=== PATIENT | female | born 1960 | race African-American/Black ===

== ENCOUNTER 2017-10-08 19:56 | Inpatient (IN) | payer MEDICARE ==
[~2017-10-08] VITALS: Ht 167.6 cm; Wt 86.2 kg
[~2017-10-08 19:56] MED LIST: ASPIRIN81 MG ORAL; BENICAR40 MG ORAL; BYSTOLIC10 MG ORAL; CRESTOR10 M1 ORAL; CYCLOBENZAPRINE10 MG ORAL; FLONASE1 SPRAYS NASAL; GABAPENTIN300 MG ORAL; HYDROCHLOROTHIA25 MG ORAL; IBUPROFEN600 MG ORAL; LEXAPRO20 MG ORAL; MAG-OX 400400 MG ORAL; NASONEX17 GM NASAL; NEVANAC *; NEXIUM40 MG ORAL; POTASSIUM99 M3 PO; PROMETHAZINE-D118 ML ORAL; REBIF44 MCG/0.5 SUBQ; RESTASIS1 EACH BOTH EYES; SINGULAIR10 MG ORAL; TAMIFLU75 MG ORAL; VITAMIN D1000 UNI1 ORAL; ZOFRAN ODT4 MG ORAL
[2017-10-08] MEDS ORDERED: Sodium Chloride 500ML 500 ML IV ONE (20:05)
[2017-10-08 21:04] LABS: HEMOGLOBIN 13.4 G/DL (12.0-16.0); MEAN CORPUSCULAR VOLUME 92 FL (80-99); PLATELET COUNT 185 K/UL (150-450); RED BLOOD COUNT 4.44 M/UL (4.20-5.40); RED CELL DISTRIBUTION WIDTH 11.4 % (11.6-14.8); WHITE BLOOD COUNT 13.3 K/UL (4.8-10.8)
[2017-10-08 21:04] LABS: APPEARANCE,URINE CLEAR; BILIRUBIN, URINE 1+ (NEGATIVE); GLUCOSE, URINE (UA) NEGATIVE (NEGATIVE); KETONES,URINE 1+ (NEGATIVE); LEUKOCYTE ESTERASE ,URINE 2+ (NEGATIVE); NITRITE,URINE NEGATIVE (NEGATIVE); PH,URINE 7 (4.5-8.0); PROTEIN,URINE 2+ (NEGATIVE); UROBILINOGEN,URINE 1 MG/DL (0.0-1.0)
[2017-10-08 21:11] LABS: COLOR,URINE YELLOW
[2017-10-08 21:19] LABS: ANION GAP 10 mmol/L (5-15); BLOOD UREA NITROGEN 20 mg/dL (7-18); CALCIUM 9.8 MG/DL (8.5-10.1); CARBON DIOXIDE 30 MMOL/L (21-32); CHLORIDE 102 MMOL/L (98-107); CREATININE 1.2 MG/DL (0.55-1.30); POTASSIUM 4.5 MMOL/L (3.5-5.1); SODIUM 142 MMOL/L (136-145)
[2017-10-08] MEDS ORDERED: cefTRIAXone 1 GM in NS 55 ML IVPB ONE (21:30)
[2017-10-08 21:32] LABS: ALANINE AMINOTRANSFERASE 44 U/L (12-78); ALBUMIN 4.1 G/DL (3.4-5.0); ALBUMIN/GLOBULIN RATIO 0.8 (1.0-2.7); ALKALINE PHOSPHATASE 89 U/L (46-116); ASPARTATE AMINO TRANSFERASE 55 U/L (15-37); BILIRUBIN,TOTAL 0.7 MG/DL (0.2-1.0); CKMB < 0.5 NG/ML (0.0-3.6); CREATINE KINASE 103 U/L (26-308)
[2017-10-08 23:14] VITALS: BP 135/89
[2017-10-08] MEDS ORDERED: NEURONTIN600 MG ORAL (23:42)
[2017-10-09] VITALS: BP 148/73
[2017-10-09] MEDS ORDERED: Morphine Sulfate 4mg/ml Inj IV PRN (00:30)
[2017-10-09] MEDS: D5 1/2NS w/KCl 20mEq 1,000 ML IV SCH ×3 (02:00→21:34)
[2017-10-09 03:48] VITALS: BP 140/70
[2017-10-09 07:52] LABS: BASOPHILS % (AUTO) 0.5 % (0.0-2.0); EOSINOPHILS % (AUTO) 0.6 % (0.0-3.0); HEMATOCRIT 36.7 % (37.0-47.0); HEMOGLOBIN 11.8 G/DL (12.0-16.0); LYMPHOCYTES % (AUTO) 18.8 % (20.0-45.0); MEAN CORPUSCULAR VOLUME 93 FL (80-99); MONOCYTES % (AUTO) 5.1 % (1.0-10.0); PLATELET COUNT 176 K/UL (150-450); RED BLOOD COUNT 3.95 M/UL (4.20-5.40); RED CELL DISTRIBUTION WIDTH 11.1 % (11.6-14.8)
[2017-10-09 08:12] VITALS: BP 139/75
[2017-10-09 08:20] LABS: ANION GAP 10 mmol/L (5-15); BLOOD UREA NITROGEN 17 mg/dL (7-18); CARBON DIOXIDE 29 MMOL/L (21-32); CHLORIDE 102 MMOL/L (98-107); CREATININE 1.2 MG/DL (0.55-1.30); PHOSPHORUS 3.6 MG/DL (2.5-4.9); POTASSIUM 3.2 MMOL/L (3.5-5.1); SODIUM 141 MMOL/L (136-145)
--- NOTE | 2017-10-09 08:22 | Emergency Room Report ---
History of Present Illness General Chief Complaint: Nausea, Vomiting, and Diarrhea Source: Patient, Medical Record Present Illness HPI Patient present with complaints of vomiting and diarrhea Abdominal cramping Patient had recently been on antibiotics However also associates of symptoms starting soon after eating fast food Denies any blood in the stool denies any blood in the vomit Denies any neck pain or photophobia Denies any chest pain or shortness of breath Abdominal cramping is 3 out of 10 Allergies: Coded Allergies: SULFA (SULFONAMIDE ANTIBIOTICS) (Verified Allergy, Intermediate, 05/28/13) N/V , bleeding, dizziness Patient History Past Medical History: see triage record Pertinent Family History: none Last Menstrual Period: None Now: No Reviewed Nursing Documentation: PMH: Agreed; PSxH: Agreed Nursing Documentation-PMH Hx Cardiac Problems: Yes Hx Hypertension: Yes Hx Pacemaker: No Hx Asthma: No Hx COPD: No Hx Diabetes: No Hx Cancer: No Hx Gastrointestinal Problems: No Hx Neurological Problems: Yes Hx Cerebrovascular Accident: No Hx Seizures: No Hx Multiple Sclerosis: Yes Review of Systems All Other Systems: negative except mentioned in HPI Physical Exam Vital Signs Date Time Temp Pulse Resp B/P (MAP) Pulse Ox O2 Delivery O2 Flow Rate FiO2 10/08/17 19:59 98.2 77 18 113/70 98 Room Air 98.2 Sp02 EP Interpretation: reviewed, normal General Appearance: well appearing, no apparent distress Head: normocephalic, atraumatic Eyes: bilateral eye PERRL, bilateral eye EOMI ENT: hearing grossly normal, normal pharynx, TMs + canals normal, uvula midline Neck: full range of motion, supple, no meningismus, no bony tend Respiratory: lungs clear, normal breath sounds, no rhonchi, no respiratory distress, no retraction, no accessory muscle use Cardiovascular #1: normal peripheral pulses, regular rate, rhythm, no edema, no gallop, no JVD, no murmur Gastrointestinal: normal bowel sounds, soft, no mass, no organomegaly, non- distended, no guarding, no hernia, no pulsatile mass, no rebound, tenderness - Diffusely Genitourinary: no CVA tenderness Musculoskeletal: normal inspection Neurologic: oriented x3, responsive, metal cleaner III-XII nml as tested, motor strength/ tone normal, sensory intact Psychiatric: mood/affect normal Skin: normal color, no rash, warm/dry, palpation normal Lymphatic: normal inspection, no adenopathy Medical Decision Making Diagnostic Impression: Primary Impression: Nausea, vomiting, and diarrhea Additional Impression: Dehydration ER Course With the history exam and presentation, multiple differentials considered, including but not limited to appendicitis, gastritis, cholecystitis, diverticulitis Patient's blood work is appropriate Provided with further hydration and antinausea medicine Given the patient's discomfort and continued discomfort patient is admitted for further care Labs Test 10/08/17 20:03 10/08/17 20:37 10/09/17 06:50 Urine Color Yellow Urine Appearance Clear Urine pH 7 (4.5-8.0) Urine Specific [place] 1.010 (1.005-1.035) Urine Protein 2+ (NEGATIVE) Urine Glucose (UA) Negative (NEGATIVE) Urine Ketones 1+ (NEGATIVE) Urine Occult Blood Negative (NEGATIVE) Urine Nitrite Negative (NEGATIVE) Urine Bilirubin 1+ (NEGATIVE) Urine Ictotest Negative Urine Urobilinogen 1 MG/DL (0.0-1.0) Urine Leukocyte Esterase 2+ (NEGATIVE) Urine RBC 2-4 /HPF (0 - 2) Urine WBC 5-10 /HPF (0 - 2) Urine Squamous Epithelial Cells Few /LPF (NONE/OCC) Urine Amorphous Sediment Few /LPF (NONE) Urine Bacteria Moderate /HPF (NONE) White Blood Count 13.3 K/UL (4.8-10.8) 7.0 K/UL (4.8-10.8) Red Blood Count 4.44 M/UL (4.20-5.40) 3.95 M/UL (4.20-5.40) Hemoglobin 13.4 G/DL (12.0-16.0) 11.8 G/DL (12.0-16.0) Hematocrit 41.0 % (37.0-47.0) 36.7 % (37.0-47.0) Mean Corpuscular Volume 92 FL (80-99) 93 FL (80-99) Mean Corpuscular Hemoglobin 30.1 PG (27.0-31.0) 29.9 PG (27.0-31.0) Mean Corpuscular Hemoglobin Concent 32.6 G/DL (32.0-36.0) 32.3 G/DL (32.0-36.0) Red Cell Distribution Width 11.4 % (11.6-14.8) 11.1 % (11.6-14.8) Platelet Count 185 K/UL (150-450) 176 K/UL (150-450) Mean Platelet Volume 8.3 FL (6.5-10.1) 8.6 FL (6.5-10.1) Neutrophils (%) (Auto) % (45.0-75.0) 75.0 % (45.0-75.0) Lymphocytes (%) (Auto) % (20.0-45.0) 18.8 % (20.0-45.0) Monocytes (%) (Auto) % (1.0-10.0) 5.1 % (1.0-10.0) Eosinophils (%) (Auto) % (0.0-3.0) 0.6 % (0.0-3.0) Basophils (%) (Auto) % (0.0-2.0) 0.5 % (0.0-2.0) Differential Total Cells Counted 100 Neutrophils % (Manual) 88 % (45-75) Lymphocytes % (Manual) 7 % (20-45) Monocytes % (Manual) 5 % (1-10) Eosinophils % (Manual) 0 % (0-3) Basophils % (Manual) 0 % (0-2) Band Neutrophils 0 % (0-8) Platelet Estimate Adequate Platelet Morphology Normal Red Blood Cell Morphology Normal Sodium Level 142 MMOL/L (136-145) Potassium Level 4.5 MMOL/L (3.5-5.1) Chloride Level 102 MMOL/L (98-107) Carbon Dioxide Level 30 MMOL/L (21-32) Anion Gap 10 mmol/L (5-15) Blood Urea Nitrogen 20 mg/dL (7-18) Creatinine 1.2 MG/DL (0.55-1.30) Estimat Glomerular Filtration Rate 56.6 mL/min (>60) Glucose Level 111 MG/DL (74-106) Calcium Level 9.8 MG/DL (8.5-10.1) Total Bilirubin 0.7 MG/DL (0.2-1.0) Aspartate Amino Transf (AST/SGOT) 55 U/L (15-37) Alanine Aminotransferase (ALT/SGPT) 44 U/L (12-78) Alkaline Phosphatase 89 U/L (46-116) Total Creatine Kinase 103 U/L (26-308) Creatine Kinase MB < 0.5 NG/ML (0.0-3.6) Creatine Kinase MB Relative Index 0.4 Troponin I 0.000 ng/mL (0.000-0.056) Pro-B-Type Natriuretic Peptide 35 pg/mL (0-125) Total Protein 9.0 G/DL (6.4-8.2) Albumin 4.1 G/DL (3.4-5.0) Globulin 4.9 g/dL Albumin/Globulin Ratio 0.8 (1.0-2.7) Lipase 272 U/L (73-393) CT/MRI/US Diagnostic Results CT/MRI/US Diagnostic Results : Impression CT abdomen pelvis: no acute disease Last Vital Signs Date Time Temp Pulse Resp B/P (MAP) Pulse Ox O2 Delivery O2 Flow Rate FiO2 10/09/17 08:12 97.7 65 20 139/75 98 97.7 10/09/17 04:00 Room Air Status: improved Disposition: ADMITTED INPATIENT Condition: Serious Referrals: Moses Gomez MD (PCP) Ifeoma Ochoa DO October 09, 2017 08:22
[2017-10-09] MEDS: Vitamin D 1000 IU Tab ORAL SCH (09:10)
[2017-10-09] MEDS: Montelukast 10mg tablet ORAL SCH (09:10)
[2017-10-09] MEDS: Irbesartan 150mg tablet ORAL SCH (09:10)
[2017-10-09] MEDS: Magnesium Oxide 400mg tab ORAL SCH (09:11)
[2017-10-09] MEDS: Flonase Nasal Inhaler 16gm NASAL SCH (09:11)
[2017-10-09] MEDS: Aspirin Baby 81mg ORAL SCH (09:11)
[2017-10-09] MEDS ORDERED: Potassium Chloride 40 MEQ in Sodium Chloride 500ML 550 ML IVPB ONE (10:15)
--- NOTE | 2017-10-09 10:42 | Diagnostic Imaging Report ---
Indication: Chest pain Technique: One view of the chest Comparison: 05/27/2014 Findings: Lungs and pleural spaces are clear. Heart size is normal. No significant interim change Impression: No acute process
[2017-10-09 11:32] VITALS: BP 149/75
--- NOTE | 2017-10-09 12:14 | Diagnostic Imaging Report ---
Indication: Abdominal pain, nausea, vomiting Technique: Spiral acquisitions obtained through the abdomen and pelvis. No oral contrast utilized, per emergency room physician request No IV contrast utilized, per referring physician request.. Multiplanar reconstructions were generated. Total dose length product 871.16 mGycm. CTDIvol(s) 17.05 mGy. Dose reduction achieved using automated exposure control Comparison: None Findings: The appendix is normal. No evidence of diverticulosis or diverticulitis. No small bowel distention. No free or loculated intraperitoneal air or fluid is evident. Lack of IV contrast limits assessment of the solid organs. The liver, gallbladder, bile ducts, pancreas, spleen, adrenals, left kidney are all unremarkable. The right kidney demonstrates a large parenchymal calcification and a smaller 5 mm probable calyceal calcification. No retroperitoneal or mesenteric mass or adenopathy. No pelvic mass or adenopathy. The uterus is markedly diffusely enlarged, slightly heterogeneous. No adnexal mass demonstrated. The included lung bases demonstrate posterior dependent atelectatic changes. The bones are unremarkable. Impression: No acute abnormality Right renal parenchymal and nonobstructive calyceal calculi Enlarged uterus, probably on the basis of fibroid changes Basilar dependent pulmonary atelectatic changes This agrees with the preliminary interpretation provided overnight by [facility], with some additional nonsignificant findings. The CT scanner at [facility] is accredited by the [employer] and the scans are performed using protocols designed to limit radiation exposure to as low as reasonably achievable to attain images of sufficient resolution adequate for diagnostic evaluation.
[2017-10-09 15:49] VITALS: BP 148/75
[2017-10-09 20:30] VITALS: BP 136/73
[2017-10-09] MEDS: Atorvastatin 80mg tab ORAL SCH (21:27)
--- NOTE | 2017-10-09 22:55 | History & Physical ---
History and Physical History & Physicial Job @ [id number] Moses Gomez MD October 09, 2017 22:55
[2017-10-10] VITALS: BP 141/78
[2017-10-10] MEDS: cefTRIAXone 1 GM in D5W 55 ML IVPB SCH ×2 (00:21→23:38)
[2017-10-10 04:00] VITALS: BP 141/72
--- NOTE | 2017-10-10 05:30 | History and Physical Report ---
DATE OF ADMISSION: 10/08/2017 CHIEF COMPLAINT: Abdominal pain, cramps, nausea, vomiting and diarrhea. HISTORY OF PRESENT ILLNESS: This is a 57-year-old very delightful female with past medical history significant for hypertension, dyslipidemia, chronic kidney disease, renal calculi, history of MS, who was presented to the hospital complaining about abdominal pain, cramps associated with nausea, vomiting, and diarrhea. The patient stated that about a week ago, she started complaining about the sore throat. She was in my office, prescribed Augmentin. She took it for 7 days. While she was taking antibiotics, she was then having loose stool and diarrhea, however, she completed a course of antibiotics and her symptoms improved. She went to eat Taco from [employer] and immediately after that she started feeling uncomfortable in abdomen associated with nausea, vomiting, abdominal cramps and subsequently decided to come to the emergency room. Shortly after initial evaluation in the emergency, the patient was admitted to the hospital with abdominal pain, nausea, vomiting, and diarrhea possible due to the gastroenteritis. PAST MEDICAL HISTORY/PAST SURGICAL HISTORY: As above, history of MS, chronic kidney disease, hypertension, history of depression, and renal calculi. Denies any seizure activity. Denies any double vision. Denies any loss of consciousness. MEDICATIONS: Medications at home, please refer to medication reconciliation. ALLERGIES: To sulfa medication. SOCIAL HISTORY: Denies any smoking, alcohol, or drugs. She is a . FAMILY HISTORY: Noncontributory. REVIEW OF SYSTEMS: Mostly as above. Denies any dysuria, frequency, or hematuria. Denies any hemoptysis. Denies any bright red blood per rectum. Complained about nausea, vomiting, abdominal pain, and cramps. Denies any seizure activity. Denies any suicidal or homicidal ideation. Denies any loss of consciousness. PHYSICAL EXAMINATION: GENERAL: The patient is awake, responsive, in no acute distress. VITAL SIGNS: On admission, temperature 98.2 degrees, pulse of 77, respirations 18, and blood pressure 113/70. HEAD AND NECK: Pupils are reactive to light. Extraocular movements are intact. Neck was supple. No JVD. LUNGS: Good air entry. No wheezing or rales. HEART: S1 and S2. Regular rhythm. No gallops. ABDOMEN: Soft, nondistended. Generalized tenderness, however, mostly in the lower quadrant. No rebound tenderness. No fluid shift. EXTREMITIES: No cyanosis, clubbing, or edema. NEUROLOGIC: Cranial nerves II through XII grossly intact. Motor strength is 5/5 in all extremities. Gait is intact. RECTAL: Refused and deferred. GENITOURINARY: Refused and deferred. LABORATORY AND DIAGNOSTIC DATA: Laboratory on admission, sodium 142, potassium 4.5, chloride 102, bicarbonate 30, BUN 20, creatinine 1.2, and glucose is 111. Calcium is 9.8. AST of 55 and ALT of 44. First troponin 0.00. Total protein is 9.0. WBC of 13, hemoglobin 13.4, hematocrit 41, and platelets is 185. Urinalysis, +2 protein, +1 ketone, +1 bilirubin, +1 urobilinogen, +2 leukocytes, 5 to 10 wbcs, few amorphous sedimentation, and moderate bacteria. The patient's CT of the abdomen pelvic, no acute abnormality, right renal parenchyma as well as nonobstructive calculus, enlarged uterus, basilar dependency pulmonary atelectasis. Chest x-ray, no acute process. ASSESSMENT: 1. Abdominal pain associated with nausea and vomiting, most likely secondary to gastroenteritis. 2. Diabetes type 2. 3. Hypertension. 4. Chronic kidney disease. 5. History of MS. 6. Dehydration with prerenal azotemia. PLAN: Admit the patient to Medical/Surgical. We will follow up laboratory. Clear liquid diet. IV hydration. Broad-spectrum antibiotic with Rocephin as well as Flagyl. Follow up with the stool study. Code status, Full Code. DVT prophylaxis with heparin subcutaneous. The patient will follow up with Dr. Dick from Gastroenterology. Moses Gomez M.D. DR: TATE JOB#: [id number] CC:
[2017-10-10 08:10] LABS: BASOPHILS % (AUTO) 0.9 % (0.0-2.0); EOSINOPHILS % (AUTO) 3.1 % (0.0-3.0); HEMATOCRIT 35.5 % (37.0-47.0); HEMOGLOBIN 11.7 G/DL (12.0-16.0); MEAN CORPUSCULAR VOLUME 93 FL (80-99); MONOCYTES % (AUTO) 10.4 % (1.0-10.0); NEUTROPHILS % (AUTO) 48.6 % (45.0-75.0); PLATELET COUNT 160 K/UL (150-450); RED CELL DISTRIBUTION WIDTH 11.5 % (11.6-14.8); WHITE BLOOD COUNT 4.1 K/UL (4.8-10.8)
[2017-10-10 08:41] LABS: ANION GAP 7 mmol/L (5-15); BLOOD UREA NITROGEN 10 mg/dL (7-18); CALCIUM 9.1 MG/DL (8.5-10.1); CARBON DIOXIDE 29 MMOL/L (21-32); CHLORIDE 107 MMOL/L (98-107); CREATININE 1.1 MG/DL (0.55-1.30); PHOSPHORUS 3.4 MG/DL (2.5-4.9); POTASSIUM 3.6 MMOL/L (3.5-5.1); SODIUM 143 MMOL/L (136-145)
[2017-10-10] MEDS: Flonase Nasal Inhaler 16gm NASAL SCH (09:32)
[2017-10-10] MEDS: Irbesartan 150mg tablet ORAL SCH (09:33)
[2017-10-10] MEDS: Vitamin D 1000 IU Tab ORAL SCH (09:34)
[2017-10-10] MEDS: Magnesium Oxide 400mg tab ORAL SCH (09:34)
[2017-10-10] MEDS: Aspirin Baby 81mg ORAL SCH (09:34)
[2017-10-10] MEDS: Montelukast 10mg tablet ORAL SCH (09:34)
--- NOTE | 2017-10-10 11:47 | GI Initial Consult Note ---
History of Present Illness General Date patient seen: October 10, 2017 Time patient seen: 11:00 Reason for Hospitalization: Nausea, Vomiting, and Diarrhea Referring physician: ALBERT BOLAND Reason for Consultation: N/V/D Present Illness HPI HISTORY OF PRESENT ILLNESS: This is a 57-year-old very delightful female with past medical history significant for hypertension, dyslipidemia, chronic kidney disease, renal calculi, history of MS, who was presented to the hospital complaining about abdominal pain, cramps associated with nausea, vomiting, and diarrhea. The patient stated that about a week ago, she started complaining about the sore throat. She was in my office, prescribed Augmentin. She took it for 7 days. While she was taking antibiotics, she was then having loose stool and diarrhea, however, she completed a course of antibiotics and her symptoms improved. She went to eat Taco from [employer] and immediately after that she started feeling uncomfortable in abdomen associated with nausea, vomiting, abdominal cramps and subsequently decided to come to the emergency room. Shortly after initial evaluation in the emergency, the patient was admitted to the hospital with abdominal pain, nausea, vomiting, and diarrhea possible due to the gastroenteritis. GI for N/V/D. HPI as noted above. CT unremarkable. Cdiff negative. Mild anemia. Pt seen, awake A&Ox4 NAD denies any N/V/D. Has not had BM since yesterday. Still has complaint of abdominal tenderness. Had EGD/colonoscopy approximately 2 years ago, states normal findings. Home Meds Active Scripts Ondansetron Odt* (ZOFRAN ODT*) 4 Mg Tab.rapdis, 4 MG ORAL Q6H PRN for Nausea & Vomiting, #10 TAB Prov:Meg Fitzpatrick P.ATraci 12/25/15 Ibuprofen* (MOTRIN*) 600 Mg Tablet, 600 MG ORAL THREE TIMES A DAY, #30 TAB Prov:Meg Fitzpatrick P.A. 12/25/15 Hydrochlorothiazide* (HYDROCHLOROTHIAZIDE*) 25 Mg Tablet, 25 MG ORAL DAILY, #30 TAB Prov:SHERRI TIWARI M.D. 03/06/15 Fluticasone Propionate (Fluticasone Propionate) 1 Sprays Naspr, 1 SPRAY NASAL TWICE A DAY, #16 GM per nostril Prov:MONTANA MADISON A. P.A. 05/27/14 Reported Medications Gabapentin* (NEURONTIN*) 600 Mg Tablet, 1200 MG ORAL HS, TAB 10/08/17 Olmesartan Medoxomil (BENICAR) 40 Mg Tablet, 40 MG ORAL DAILY, TAB 12/25/15 Aspirin* (ASPIRIN*) 81 Mg Tab.chew, 81 MG ORAL DAILY, TAB 05/28/13 Cholecalciferol (Vitamin D3)* (VITAMIN D*) 1,000 Unit Tablet, 1000 UNIT ORAL DAILY 05/28/13 Mometasone Furoate (NASONEX) 17 Gm [place].pump, 2 SPRAYS NASAL DAILY 05/06/13 Cyclosporine (RESTASIS) 1 Each Droperette, 1 DROP BOTH EYES EVERY 12 HOURS 05/06/13 Potassium Gluconate (POTASSIUM) 99 Mg Tablet, 1080 MG PO TID 05/06/13 Montelukast Sodium* (SINGULAIR*) 10 Mg Tablet, 10 MG ORAL DAILY 05/06/13 Esomeprazole Magnesium (NEXIUM) 40 Mg Capsule.dr, 40 MG ORAL DAILY 05/06/13 Rosuvastatin Calcium (Crestor) 10 Mg Tab, 40 MG ORAL DAILY, TAB 05/06/13 Nebivolol Hcl (BYSTOLIC*) 10 Mg Tablet, 30 MG ORAL DAILY 05/06/13 Magnesium Oxide (Magnesium Oxide) 400 Mg Tab, 400 MG ORAL DAILY 05/06/13 Escitalopram Oxalate* (LEXAPRO*) 20 Mg Tablet, 20 MG ORAL DAILY 05/06/13 Gabapentin* (GABAPENTIN*) 300 Mg Capsule, 600 MG ORAL DAILY 05/06/13 Interferon Beta-1A (Rebif 44 Mcg/0.5 ml Syringe) 44 Mcg/0.5 Ml Inj, 44 MCG SUBQ 3XW 05/06/13 Discontinued Reported Medications Miscellaneous Information ([place]) 1 Drop Susp, 1 DROP * 05/06/13 Discontinued Scripts Cyclobenzaprine Hcl* (FLEXERIL*) 10 Mg Tablet, 10 MG ORAL THREE TIMES A DAY, # 20 TAB Prov:Meg Fitzpatrick P.A. 12/25/15 Oseltamivir Phosphate (Tamiflu) 75 Mg Cap, 75 MG ORAL DAILY for 5 Days, CAP Prov:MONTANA MADISON A. P.A. 05/27/14 Med list reviewed/reconciled: Yes Allergies: Coded Allergies: SULFA (SULFONAMIDE ANTIBIOTICS) (Verified Allergy, Intermediate, 05/28/13) N/V , bleeding, dizziness Patient History History Provided By: Patient, Medical Record H Narrative PAST MEDICAL HISTORY/PAST SURGICAL HISTORY: As above, history of MS, chronic kidney disease, hypertension, history of depression, and renal calculi. Denies any seizure activity. Denies any double vision. Denies any loss of consciousness. Social History: Denies: smoking, alcohol use, drug use, other Review of Systems All Other Systems: negative except mentioned in HPI Physical Exam Vital Signs Date Time Temp Pulse Resp B/P (MAP) Pulse Ox O2 Delivery O2 Flow Rate FiO2 10/08/17 19:59 98.2 77 18 113/70 98 Room Air 98.2 Sp02 EP Interpretation: reviewed, normal Labs Laboratory Tests Test 10/10/17 07:00 White Blood Count 4.1 K/UL (4.8-10.8) L Red Blood Count 3.80 M/UL (4.20-5.40) L Hemoglobin 11.7 G/DL (12.0-16.0) L Hematocrit 35.5 % (37.0-47.0) L Mean Corpuscular Volume 93 FL (80-99) Mean Corpuscular Hemoglobin 30.8 PG (27.0-31.0) Mean Corpuscular Hemoglobin Concent 33.0 G/DL (32.0-36.0) Red Cell Distribution Width 11.5 % (11.6-14.8) L Platelet Count 160 K/UL (150-450) Mean Platelet Volume 8.7 FL (6.5-10.1) Neutrophils (%) (Auto) 48.6 % (45.0-75.0) Lymphocytes (%) (Auto) 37.0 % (20.0-45.0) Monocytes (%) (Auto) 10.4 % (1.0-10.0) H Eosinophils (%) (Auto) 3.1 % (0.0-3.0) H Basophils (%) (Auto) 0.9 % (0.0-2.0) Sodium Level 143 MMOL/L (136-145) Potassium Level 3.6 MMOL/L (3.5-5.1) Chloride Level 107 MMOL/L (98-107) Carbon Dioxide Level 29 MMOL/L (21-32) Anion Gap 7 mmol/L (5-15) Blood Urea Nitrogen 10 mg/dL (7-18) Creatinine 1.1 MG/DL (0.55-1.30) Estimat Glomerular Filtration Rate > 60 mL/min (>60) Glucose Level 116 MG/DL (74-106) H Calcium Level 9.1 MG/DL (8.5-10.1) Phosphorus Level 3.4 MG/DL (2.5-4.9) Magnesium Level 2.2 MG/DL (1.8-2.4) General Appearance: well appearing, no apparent distress, alert Head: normocephalic EENT: PERRL/EOMI, normal ENT inspection Neck: supple Respiratory: normal breath sounds, no respiratory distress Cardiovascular: normal rate Gastrointestinal: normal inspection, non tender, soft, normal bowel sounds, non -distended Rectal: deferred Genitourinary: no CVA tenderness Musculoskeletal: normal inspection, back normal Neurologic: normal inspection, alert, oriented x3, responsive Psychiatric: normal inspection, judgement/insight normal, memory normal Skin: normal inspection, normal color, no rash, warm/dry, palpation normal, well hydrated Lymphatic: normal inspection, no adenopathy Current Medications Current Medications Medications (Trade) Dose Ordered Sig/Carin Route PRN Reason Start Time Stop Time Status Last Admin Dose Admin Acetaminophen (Tylenol) 650 mg Q6H PRN ORAL Mild Pain/Temp > 100.5 10/09/17 00:30 11/08/17 00:29 10/09/17 21:32 Aspirin (ASA) 81 mg DAILY ORAL 10/09/17 09:00 11/08/17 08:59 10/10/17 09:34 Atorvastatin Calcium (Lipitor) 80 mg DAILY@2100 ORAL 10/09/17 21:00 11/08/17 20:59 10/09/17 21:27 Ceftriaxone Sodium 1 gm/ Dextrose 55 ml @ 110 mls/hr Q24H IVPB 10/10/17 00:00 10/17/17 00:00 10/10/17 00:21 Dextrose/ Electrolytes 1,000 ml @ 75 mls/hr [id number] IV 10/09/17 02:00 11/08/17 01:59 10/09/17 21:34 Escitalopram Oxalate (Lexapro) 20 mg DAILY ORAL 10/09/17 09:00 11/08/17 08:59 10/10/17 09:34 Fluticasone Propionate (Flonase) 2 spray DAILY NASAL 10/09/17 09:00 11/08/17 08:59 10/10/17 09:32 Fluticasone/ Vilanterol (Breo Ellipta 100/25) 1 DAILY INH 10/10/17 09:00 11/09/17 08:59 Gabapentin (Neurontin) 600 mg DAILY ORAL 10/09/17 09:00 11/08/17 08:59 10/10/17 09:34 Gabapentin (Neurontin) 1,200 mg BEDTIME ORAL 10/09/17 21:00 11/08/17 20:59 10/09/17 21:26 Irbesartan (Avapro) 300 mg DAILY ORAL 10/09/17 09:00 11/08/17 08:59 10/10/17 09:33 Magnesium Oxide (Mag-Ox 400mg) 400 mg DAILY ORAL 10/09/17 09:00 11/08/17 08:59 10/10/17 09:34 Metronidazole 100 ml @ 100 mls/hr Q12H IVPB 10/09/17 02:00 10/16/17 01:59 10/10/17 02:34 Montelukast Sodium (Singulair) 10 mg DAILY ORAL 10/09/17 09:00 11/08/17 08:59 10/10/17 09:34 Morphine Sulfate (Morphine Sulfate) 2 mg Q4H PRN IV Severe Pain (Pain Scale 7-10) 10/09/17 00:30 10/16/17 00:29 Nebivolol (Bystolic) 30 mg DAILY ORAL 10/09/17 09:00 11/08/17 08:59 10/10/17 09:35 Ondansetron HCl (Zofran) 4 mg Q4H PRN IVP Nausea & Vomiting 10/09/17 00:30 11/08/17 00:29 Patient Own Medication (Patient's Own Med) 1 ea 3XW@2100 SUBQ 10/10/17 21:00 11/09/17 20:59 Patient Own Medication (Patient's Own Med) 1 ea Q12H BOTH EYES 10/10/17 09:00 11/09/17 08:59 10/10/17 09:32 Potassium Chloride (K-Dur) 20 meq DAILY ORAL 10/10/17 09:00 11/09/17 08:59 10/10/17 09:32 Vitamin D (Vitamin D) 1,000 intlu DAILY ORAL 10/09/17 09:00 11/08/17 08:59 10/10/17 09:34 GI: Plan Problems: (1) Gastroenteritis due to food toxin (2) Vomiting and diarrhea (3) Nausea, vomiting, and diarrhea (4) Dehydration Plan acute gastroenteritis diarrhea now resolved - cdiff negative - stool culture negative normocytic anemia electrolyte imbalance symptomatic treatment adv to regular diet IV/PO hydration zofran prn electrolyte replacement ppi fu labs patient stable for discharge if able to tolerate diet Discussed with Dr. Dick. Thank you for this patient referral, we will follow. The patient was seen and examined at bedside and all new and available data was reviewed in the patients chart. I agree with the above findings, impression and plan. (Patient seen earlier today. Signature stamp does not reflect patient encounter time.). - MD Cony ZaldivarKingman Regional Medical CenterTmara CRANIOLOGIST October 10, 2017 11:47
[2017-10-10] MEDS: Breo Ellipta 100/25mcg - 14 dose INH SCH (12:02)
--- NOTE | 2017-10-10 12:44 | Cardiology Report ---
APPROVED REPORT EKG Measurement Heart [id number] VT 150P70 [id number] Normal sinus rhythm Cannot rule out Anterior infarct, age undetermined Prolonged QT Abnormal ECG
[2017-10-10] MEDS ORDERED: Tubing IV Secondary IV ONE ×2 (15:12→15:17)
[2017-10-10] MEDS: D5 1/2NS w/KCl 20mEq 1,000 ML IV SCH (16:54)
[2017-10-10 20:24] VITALS: BP 155/75
[2017-10-10] MEDS: Atorvastatin 80mg tab ORAL SCH (20:51)
[2017-10-10] MEDS ORDERED: INTERFERON BETA 44 MCG SUBQ SCH (21:00)
--- NOTE | 2017-10-10 23:23 | Internal Med Progress Note ---
Subjective Physician Name Moses Gomez Attending Physician Moses Gomez MD Current Medications Medications (Trade) Dose Ordered Sig/Carin Route PRN Reason Start Time Stop Time Status Last Admin Dose Admin Acetaminophen (Tylenol) 650 mg Q6H PRN ORAL Mild Pain/Temp > 100.5 10/09/17 00:30 11/08/17 00:29 10/10/17 20:21 Aspirin (ASA) 81 mg DAILY ORAL 10/09/17 09:00 11/08/17 08:59 10/10/17 09:34 Atorvastatin Calcium (Lipitor) 80 mg DAILY@2100 ORAL 10/09/17 21:00 11/08/17 20:59 10/10/17 20:51 Ceftriaxone Sodium 1 gm/ Dextrose 55 ml @ 110 mls/hr Q24H IVPB 10/10/17 00:00 10/17/17 00:00 10/10/17 00:21 Dextrose/ Electrolytes 1,000 ml @ 75 mls/hr [id number] IV 10/09/17 02:00 11/08/17 01:59 10/10/17 16:54 Escitalopram Oxalate (Lexapro) 20 mg DAILY ORAL 10/09/17 09:00 11/08/17 08:59 10/10/17 09:34 Fluticasone Propionate (Flonase) 2 spray DAILY NASAL 10/09/17 09:00 11/08/17 08:59 10/10/17 09:32 Fluticasone/ Vilanterol (Breo Ellipta 100/25) 1 DAILY INH 10/10/17 09:00 11/09/17 08:59 10/10/17 12:02 Gabapentin (Neurontin) 600 mg DAILY ORAL 10/09/17 09:00 11/08/17 08:59 10/10/17 09:34 Gabapentin (Neurontin) 1,200 mg BEDTIME ORAL 10/09/17 21:00 11/08/17 20:59 10/10/17 20:50 Irbesartan (Avapro) 300 mg DAILY ORAL 10/09/17 09:00 11/08/17 08:59 10/10/17 09:33 Magnesium Oxide (Mag-Ox 400mg) 400 mg DAILY ORAL 10/09/17 09:00 11/08/17 08:59 10/10/17 09:34 Metronidazole 100 ml @ 100 mls/hr Q12H IVPB 10/09/17 02:00 10/16/17 01:59 10/10/17 14:21 Montelukast Sodium (Singulair) 10 mg DAILY ORAL 10/09/17 09:00 11/08/17 08:59 10/10/17 09:34 Morphine Sulfate (Morphine Sulfate) 2 mg Q4H PRN IV Severe Pain (Pain Scale 7-10) 10/09/17 00:30 10/16/17 00:29 Nebivolol (Bystolic) 30 mg DAILY ORAL 10/09/17 09:00 11/08/17 08:59 10/10/17 09:35 Ondansetron HCl (Zofran) 4 mg Q4H PRN IVP Nausea & Vomiting 10/09/17 00:30 11/08/17 00:29 10/10/17 18:56 Patient Own Medication (Patient's Own Med) 1 ea 3XW@2100 SUBQ 10/10/17 21:00 11/09/17 20:59 10/10/17 20:51 Patient Own Medication (Patient's Own Med) 1 ea Q12H BOTH EYES 10/10/17 09:00 11/09/17 08:59 10/10/17 21:13 Potassium Chloride (K-Dur) 20 meq DAILY ORAL 10/10/17 09:00 11/09/17 08:59 10/10/17 09:32 Vitamin D (Vitamin D) 1,000 intlu DAILY ORAL 10/09/17 09:00 11/08/17 08:59 10/10/17 09:34 Allergies: Coded Allergies: SULFA (SULFONAMIDE ANTIBIOTICS) (Verified Allergy, Intermediate, 05/28/13) N/V , bleeding, dizziness Subjective awake, alert, responsive, C/O nausea / LIN/ Diarrhea after meal, No fever or chills, WBC: 4.1 Objective Last Vital Signs Date Time Temp Pulse Resp B/P (MAP) Pulse Ox O2 Delivery O2 Flow Rate FiO2 10/10/17 20:25 Room Air 10/10/17 20:24 98.2 62 19 155/75 97 98.2 Laboratory Tests Test 10/10/17 07:00 White Blood Count 4.1 K/UL (4.8-10.8) L Red Blood Count 3.80 M/UL (4.20-5.40) L Hemoglobin 11.7 G/DL (12.0-16.0) L Hematocrit 35.5 % (37.0-47.0) L Mean Corpuscular Volume 93 FL (80-99) Mean Corpuscular Hemoglobin 30.8 PG (27.0-31.0) Mean Corpuscular Hemoglobin Concent 33.0 G/DL (32.0-36.0) Red Cell Distribution Width 11.5 % (11.6-14.8) L Platelet Count 160 K/UL (150-450) Mean Platelet Volume 8.7 FL (6.5-10.1) Neutrophils (%) (Auto) 48.6 % (45.0-75.0) Lymphocytes (%) (Auto) 37.0 % (20.0-45.0) Monocytes (%) (Auto) 10.4 % (1.0-10.0) H Eosinophils (%) (Auto) 3.1 % (0.0-3.0) H Basophils (%) (Auto) 0.9 % (0.0-2.0) Sodium Level 143 MMOL/L (136-145) Potassium Level 3.6 MMOL/L (3.5-5.1) Chloride Level 107 MMOL/L (98-107) Carbon Dioxide Level 29 MMOL/L (21-32) Anion Gap 7 mmol/L (5-15) Blood Urea Nitrogen 10 mg/dL (7-18) Creatinine 1.1 MG/DL (0.55-1.30) Estimat Glomerular Filtration Rate > 60 mL/min (>60) Glucose Level 116 MG/DL (74-106) H Calcium Level 9.1 MG/DL (8.5-10.1) Phosphorus Level 3.4 MG/DL (2.5-4.9) Magnesium Level 2.2 MG/DL (1.8-2.4) Microbiology Date/Time Source Procedure Growth Status 10/09/17 10:40 Stool Stool Culture - Preliminary NORMAL FECAL CONNOR. Resulted 10/09/17 10:40 Stool Clostridium difficile Toxin Assay - Final Complete 10/08/17 20:03 Urine,Clean Catch Urine Culture - Preliminary Mixed Gram Positive Organism Resulted Intake and Output 10/09/17 10/10/17 19:00 07:00 Intake Total 1540 ml 945 ml Balance 1540 ml 945 ml Intake Oral 1540 ml 240 ml IV Total 705 ml # Voids 3 3 # Bowel Movements 2 Objective General: No acute distress, awake and alert HEENT: NCAT, sclera anicteric, PERRL, EOMI. Neck: Supple, no significant jugular venous distention, Lungs: Good inspiratory effort, clear to auscultation bilaterally, no Wheeze or Rales. Heart: Regular rate and rhythm, normal S1/S2, no murmurs Abdomen: soft, nontender, nondistended. Normoactive bowel sounds. / Rectal: Refused and deferred. Extremities: No Cyanosis , clubbing or edema. Neuro: A&O x 3, Able to move all extremities Skin: warm, no rashes or lesions Psych: Normal mood and affect Assessment/Plan Assessment/Plan 1. Abdominal pain associated with nausea and vomiting, most likely secondary to gastroenteritis. 2. Diabetes type 2. 3. Hypertension. 4. Chronic kidney disease. 5. History of MS. 6. Dehydration with prerenal azotemia. PLAN: In Medical/Surgical. Follow up laboratory and stool cultures. Clear liquid diet advance as tolerated IV hydration. Broad-spectrum antibiotic: Rocephin , Flagyl. Code status: Full Code. DVT prophylaxis with heparin subcutaneous. Dr. Dick from Gastroenterology consult. [place] planning home in AM. Moses Gomez MD October 10, 2017 23:23
[2017-10-11 00:15] VITALS: BP 139/75
[2017-10-11 04:00] VITALS: BP 150/79
[2017-10-11] MEDS: D5 1/2NS w/KCl 20mEq 1,000 ML IV SCH ×2 (06:02→20:31)
[2017-10-11 07:51] LABS: BASOPHILS % (AUTO) 0.7 % (0.0-2.0); EOSINOPHILS % (AUTO) 1.4 % (0.0-3.0); HEMATOCRIT 34.6 % (37.0-47.0); HEMOGLOBIN 11.4 G/DL (12.0-16.0); LYMPHOCYTES % (AUTO) 14.5 % (20.0-45.0); MEAN CORPUSCULAR VOLUME 93 FL (80-99); MONOCYTES % (AUTO) 9.2 % (1.0-10.0); NEUTROPHILS % (AUTO) 74.2 % (45.0-75.0); PLATELET COUNT 154 K/UL (150-450); RED BLOOD COUNT 3.71 M/UL (4.20-5.40); RED CELL DISTRIBUTION WIDTH 11.4 % (11.6-14.8); WHITE BLOOD COUNT 5.6 K/UL (4.8-10.8)
--- NOTE | 2017-10-11 07:53 | Pulmonology Progress Note ---
Assessment/Plan Assessment/Plan ASSESSMENT Abdominal pain with nausea and vomiting Probable gastroenteritis Hypertension Hypokalemia Dehydration History of MS PLAN OF CARE Med Surg floor diarrhea resolved IV fluids clear liquid diet and advanced as tolerated , able to tolerate empiric antibiotics stool culture negative ,stool for C. difficile negative GI follows DVT prophylaxis pain management blood pressure management with ARB and beta jd, optimize as needed home medications resumed symptomatic treatment antiemetics prn monitor renal parameters, electrolytes, correct lytes as needed. I Subjective Allergies: Coded Allergies: SULFA (SULFONAMIDE ANTIBIOTICS) (Verified Allergy, Intermediate, 05/28/13) N/V , bleeding, dizziness Objective Last 24 Hour Vital Signs Date Time Temp Pulse Resp B/P (MAP) Pulse Ox O2 Delivery O2 Flow Rate FiO2 10/11/17 04:00 98.7 74 20 150/79 97 Room Air 98.7 10/11/17 00:16 Room Air 10/11/17 00:15 98.2 69 18 139/75 96 98.2 10/10/17 20:25 Room Air 10/10/17 20:24 98.2 62 19 155/75 97 98.2 10/10/17 09:33 141/72 Intake and Output 10/10/17 10/11/17 19:00 07:00 Intake Total 1050 ml 1055 ml Balance 1050 ml 1055 ml Intake Oral 500 ml 300 ml IV Total 550 ml 755 ml # Voids 4 3 # Bowel Movements 3 2 Microbiology Date/Time Source Procedure Growth Status 10/09/17 10:40 Stool Stool Culture - Preliminary NORMAL FECAL CONNOR. Resulted 10/09/17 10:40 Stool Clostridium difficile Toxin Assay - Final Complete 10/08/17 20:03 Urine,Clean Catch Urine Culture - Final Mixed Gram Positive Organism Complete Laboratory Tests 10/11/17 06:40: White Blood Count [Pending], Red Blood Count [Pending], Hemoglobin [Pending], Hematocrit [Pending], Mean Corpuscular Volume [Pending], Mean Corpuscular Hemoglobin [Pending], Mean Corpuscular Hemoglobin Concent [Pending], Red Cell Distribution Width [Pending], Platelet Count [Pending], Mean Platelet Volume [ Pending], Neutrophils (%) (Auto) [Pending], Lymphocytes (%) (Auto) [Pending], Monocytes (%) (Auto) [Pending], Eosinophils (%) (Auto) [Pending], Basophils (%) (Auto) [Pending], Sodium Level [Pending], Potassium Level [Pending], Chloride Level [Pending], Carbon Dioxide Level [Pending], Blood Urea Nitrogen [Pending], Creatinine [Pending], Estimat Glomerular Filtration Rate [Pending], Glucose Level [Pending], Calcium Level [Pending] Current Medications Medications (Trade) Dose Ordered Sig/Carin Route PRN Reason Start Time Stop Time Status Last Admin Dose Admin Acetaminophen (Tylenol) 650 mg Q6H PRN ORAL Mild Pain/Temp > 100.5 10/09/17 00:30 11/08/17 00:29 10/11/17 06:22 Aspirin (ASA) 81 mg DAILY ORAL 10/09/17 09:00 11/08/17 08:59 10/10/17 09:34 Atorvastatin Calcium (Lipitor) 80 mg DAILY@2100 ORAL 10/09/17 21:00 11/08/17 20:59 10/10/17 20:51 Ceftriaxone Sodium 1 gm/ Dextrose 55 ml @ 110 mls/hr Q24H IVPB 10/10/17 00:00 10/17/17 00:00 10/10/17 23:38 Dextrose/ Electrolytes 1,000 ml @ 75 mls/hr [id number] IV 10/09/17 02:00 11/08/17 01:59 10/11/17 06:02 Escitalopram Oxalate (Lexapro) 20 mg DAILY ORAL 10/09/17 09:00 11/08/17 08:59 10/10/17 09:34 Fluticasone Propionate (Flonase) 2 spray DAILY NASAL 10/09/17 09:00 11/08/17 08:59 10/10/17 09:32 Fluticasone/ Vilanterol (Breo Ellipta 100/25) 1 DAILY INH 10/10/17 09:00 11/09/17 08:59 10/10/17 12:02 Gabapentin (Neurontin) 600 mg DAILY ORAL 10/09/17 09:00 11/08/17 08:59 10/10/17 09:34 Gabapentin (Neurontin) 1,200 mg BEDTIME ORAL 10/09/17 21:00 11/08/17 20:59 10/10/17 20:50 Irbesartan (Avapro) 300 mg DAILY ORAL 10/09/17 09:00 11/08/17 08:59 10/10/17 09:33 Magnesium Oxide (Mag-Ox 400mg) 400 mg DAILY ORAL 10/09/17 09:00 11/08/17 08:59 10/10/17 09:34 Metronidazole 100 ml @ 100 mls/hr Q12H IVPB 10/09/17 02:00 10/16/17 01:59 10/11/17 01:54 Montelukast Sodium (Singulair) 10 mg DAILY ORAL 10/09/17 09:00 11/08/17 08:59 10/10/17 09:34 Morphine Sulfate (Morphine Sulfate) 2 mg Q4H PRN IV Severe Pain (Pain Scale 7-10) 10/09/17 00:30 10/16/17 00:29 Nebivolol (Bystolic) 30 mg DAILY ORAL 10/09/17 09:00 11/08/17 08:59 10/10/17 09:35 Ondansetron HCl (Zofran) 4 mg Q4H PRN IVP Nausea & Vomiting 10/09/17 00:30 11/08/17 00:29 10/10/17 18:56 Patient Own Medication (Patient's Own Med) 1 ea 3XW@2100 SUBQ 10/10/17 21:00 11/09/17 20:59 10/10/17 20:51 Patient Own Medication (Patient's Own Med) 1 ea Q12H BOTH EYES 10/10/17 09:00 11/09/17 08:59 10/10/17 21:13 Potassium Chloride (K-Dur) 20 meq DAILY ORAL 10/10/17 09:00 11/09/17 08:59 10/10/17 09:32 Vitamin D (Vitamin D) 1,000 intlu DAILY ORAL 10/09/17 09:00 11/08/17 08:59 10/10/17 09:34 Odalys Bob NP October 11, 2017 07:53
[2017-10-11 08:00] VITALS: BP 147/76
[2017-10-11 08:02] LABS: ANION GAP 8 mmol/L (5-15); BLOOD UREA NITROGEN 8 mg/dL (7-18); CALCIUM 9.1 MG/DL (8.5-10.1); CARBON DIOXIDE 29 MMOL/L (21-32); CHLORIDE 104 MMOL/L (98-107); CREATININE 1.3 MG/DL (0.55-1.30); POTASSIUM 3.7 MMOL/L (3.5-5.1); SODIUM 141 MMOL/L (136-145)
[2017-10-11] MEDS: Flonase Nasal Inhaler 16gm NASAL SCH (09:28)
[2017-10-11] MEDS: Vitamin D 1000 IU Tab ORAL SCH (09:29)
[2017-10-11] MEDS: Irbesartan 150mg tablet ORAL SCH (09:29)
[2017-10-11] MEDS: Aspirin Baby 81mg ORAL SCH (09:30)
[2017-10-11] MEDS: Magnesium Oxide 400mg tab ORAL SCH (09:30)
[2017-10-11] MEDS: Montelukast 10mg tablet ORAL SCH (09:30)
[2017-10-11] MEDS: Breo Ellipta 100/25mcg - 14 dose INH SCH (09:39)
[2017-10-11 12:00] VITALS: BP 137/74
--- NOTE | 2017-10-11 12:13 | General Progress Note ---
Assessment/Plan Problem List: (1) Hypertension ICD Codes: I10 - Essential (primary) hypertension SNOMED: 71956180 (2) Nausea, vomiting, and diarrhea ICD Codes: R11.2 - Nausea with vomiting, unspecified; R19.7 - Diarrhea, unspecified SNOMED: 3275949 (3) Anemia ICD Codes: D64.9 - Anemia, unspecified SNOMED: 735154351 Assessment/Plan anemia work up check tyroid levels lactouse free dier/low residual may need colonoscopy Subjective ROS Limited/Unobtainable: Yes Allergies: Coded Allergies: SULFA (SULFONAMIDE ANTIBIOTICS) (Verified Allergy, Intermediate, 05/28/13) N/V , bleeding, dizziness Subjective c/o loose stools Objective Last 24 Hour Vital Signs Date Time Temp Pulse Resp B/P (MAP) Pulse Ox O2 Delivery O2 Flow Rate FiO2 10/11/17 09:36 73 16 97 Room Air 21 10/11/17 09:33 75 16 96 Room Air 21 10/11/17 09:29 147/76 10/11/17 08:00 98.4 70 20 147/76 97 98.4 10/11/17 04:00 98.7 74 20 150/79 97 Room Air 98.7 10/11/17 00:16 Room Air 10/11/17 00:15 98.2 69 18 139/75 96 98.2 10/10/17 20:25 Room Air 10/10/17 20:24 98.2 62 19 155/75 97 98.2 Intake and Output 10/10/17 10/11/17 19:00 07:00 Intake Total 1050 ml 1130 ml Balance 1050 ml 1130 ml Intake Oral 500 ml 300 ml IV Total 550 ml 830 ml # Voids 4 3 # Bowel Movements 3 2 Laboratory Tests 10/11/17 06:40: White Blood Count 5.6, Red Blood Count 3.71L, Hemoglobin 11.4L, Hematocrit 34.6L , Mean Corpuscular Volume 93, Mean Corpuscular Hemoglobin 30.7, Mean Corpuscular Hemoglobin Concent 33.0, Red Cell Distribution Width 11.4L, Platelet Count 154, Mean Platelet Volume 8.6, Neutrophils (%) (Auto) 74.2, Lymphocytes (%) (Auto) 14.5L, Monocytes (%) (Auto) 9.2, Eosinophils (%) (Auto) 1.4, Basophils (%) (Auto) 0.7, Sodium Level 141, Potassium Level 3.7, Chloride Level 104, Carbon Dioxide Level 29, Anion Gap 8, Blood Urea Nitrogen 8, Creatinine 1.3, Estimat Glomerular Filtration Rate 51.5, Glucose Level 129H, Calcium Level 9.1 Height (Feet): 5 Height (Inches): 6.00 Weight (Pounds): 190 General Appearance: alert EENT: normal ENT inspection Neck: supple Cardiovascular: normal rate Respiratory/Chest: lungs clear Abdomen: normal bowel sounds, non tender, soft Extremities: non-tender Christophe Dick MD October 11, 2017 12:13
--- NOTE | 2017-10-11 14:29 | Internal Med Progress Note ---
Subjective Date of Service: October 11, 2017 Physician Name Sun,Avi Attending Physician Moses Gomez MD Current Medications Medications (Trade) Dose Ordered Sig/Carin Route PRN Reason Start Time Stop Time Status Last Admin Dose Admin Acetaminophen (Tylenol) 650 mg Q6H PRN ORAL Mild Pain/Temp > 100.5 10/09/17 00:30 11/08/17 00:29 10/11/17 06:22 Atorvastatin Calcium (Lipitor) 80 mg DAILY@2100 ORAL 10/09/17 21:00 11/08/17 20:59 10/10/17 20:51 Ceftriaxone Sodium 1 gm/ Dextrose 55 ml @ 110 mls/hr Q24H IVPB 10/10/17 00:00 10/17/17 00:00 10/10/17 23:38 Dextrose/ Electrolytes 1,000 ml @ 75 mls/hr [id number] IV 10/09/17 02:00 11/08/17 01:59 10/11/17 06:02 Escitalopram Oxalate (Lexapro) 20 mg DAILY ORAL 10/09/17 09:00 11/08/17 08:59 10/11/17 09:30 Fluticasone Propionate (Flonase) 2 spray DAILY NASAL 10/09/17 09:00 11/08/17 08:59 10/11/17 09:28 Fluticasone/ Vilanterol (Breo Ellipta 100/25) 1 DAILY INH 10/10/17 09:00 11/09/17 08:59 10/11/17 09:39 Gabapentin (Neurontin) 600 mg DAILY ORAL 10/09/17 09:00 11/08/17 08:59 10/11/17 09:29 Gabapentin (Neurontin) 1,200 mg BEDTIME ORAL 10/09/17 21:00 11/08/17 20:59 10/10/17 20:50 Irbesartan (Avapro) 300 mg DAILY ORAL 10/09/17 09:00 11/08/17 08:59 10/11/17 09:29 Magnesium Oxide (Mag-Ox 400mg) 400 mg DAILY ORAL 10/09/17 09:00 11/08/17 08:59 10/11/17 09:30 Metronidazole 100 ml @ 100 mls/hr Q12H IVPB 10/09/17 02:00 10/16/17 01:59 10/11/17 01:54 Montelukast Sodium (Singulair) 10 mg DAILY ORAL 10/09/17 09:00 11/08/17 08:59 10/11/17 09:30 Morphine Sulfate (Morphine Sulfate) 2 mg Q4H PRN IV Severe Pain (Pain Scale 7-10) 10/09/17 00:30 10/16/17 00:29 Nebivolol (Bystolic) 30 mg DAILY ORAL 10/09/17 09:00 11/08/17 08:59 10/11/17 09:28 Ondansetron HCl (Zofran) 4 mg Q4H PRN IVP Nausea & Vomiting 10/09/17 00:30 11/08/17 00:29 10/10/17 18:56 Patient Own Medication (Patient's Own Med) 1 ea 3XW@2100 SUBQ 10/10/17 21:00 11/09/17 20:59 10/10/17 20:51 Patient Own Medication (Patient's Own Med) 1 ea Q12H BOTH EYES 10/10/17 09:00 11/09/17 08:59 10/11/17 09:28 Potassium Chloride (K-Dur) 20 meq DAILY ORAL 10/10/17 09:00 11/09/17 08:59 10/11/17 09:29 Vitamin D (Vitamin D) 1,000 intlu DAILY ORAL 10/09/17 09:00 11/08/17 08:59 10/11/17 09:29 Allergies: Coded Allergies: SULFA (SULFONAMIDE ANTIBIOTICS) (Verified Allergy, Intermediate, 05/28/13) N/V , bleeding, dizziness ROS Limited/Unobtainable: No Constitutional: Reports: no symptoms HEENT: Reports: no symptoms Cardiovascular: Reports: no symptoms Gastrointestinal/Abdominal: Reports: abdominal pain, nausea, vomiting Genitourinary: Reports: no symptoms Neurologic/Psychiatric: Reports: no symptoms Subjective 57 YO F admitted with Abdominal pain, nausea and vomiting. Cover for Int Med- Dr Gomez Objective Last Vital Signs Date Time Temp Pulse Resp B/P (MAP) Pulse Ox O2 Delivery O2 Flow Rate FiO2 10/11/17 12:00 97.7 67 23 137/74 98 97.7 10/11/17 09:36 Room Air 21 Laboratory Tests Test 10/11/17 06:40 White Blood Count 5.6 K/UL (4.8-10.8) Red Blood Count 3.71 M/UL (4.20-5.40) L Hemoglobin 11.4 G/DL (12.0-16.0) L Hematocrit 34.6 % (37.0-47.0) L Mean Corpuscular Volume 93 FL (80-99) Mean Corpuscular Hemoglobin 30.7 PG (27.0-31.0) Mean Corpuscular Hemoglobin Concent 33.0 G/DL (32.0-36.0) Red Cell Distribution Width 11.4 % (11.6-14.8) L Platelet Count 154 K/UL (150-450) Mean Platelet Volume 8.6 FL (6.5-10.1) Neutrophils (%) (Auto) 74.2 % (45.0-75.0) Lymphocytes (%) (Auto) 14.5 % (20.0-45.0) L Monocytes (%) (Auto) 9.2 % (1.0-10.0) Eosinophils (%) (Auto) 1.4 % (0.0-3.0) Basophils (%) (Auto) 0.7 % (0.0-2.0) Sodium Level 141 MMOL/L (136-145) Potassium Level 3.7 MMOL/L (3.5-5.1) Chloride Level 104 MMOL/L (98-107) Carbon Dioxide Level 29 MMOL/L (21-32) Anion Gap 8 mmol/L (5-15) Blood Urea Nitrogen 8 mg/dL (7-18) Creatinine 1.3 MG/DL (0.55-1.30) Estimat Glomerular Filtration Rate 51.5 mL/min (>60) Glucose Level 129 MG/DL (74-106) H Calcium Level 9.1 MG/DL (8.5-10.1) Thyroid Stimulating Hormone (TSH) 1.082 uiU/mL (0.358-3.740) Microbiology Date/Time Source Procedure Growth Status 10/09/17 10:40 Stool Stool Culture - Preliminary NORMAL FECAL CONNOR. Resulted 10/09/17 10:40 Stool Clostridium difficile Toxin Assay - Final Complete 10/08/17 20:03 Urine,Clean Catch Urine Culture - Final Mixed Gram Positive Organism Complete Intake and Output 10/10/17 10/11/17 19:00 07:00 Intake Total 1050 ml 1130 ml Balance 1050 ml 1130 ml Intake Oral 500 ml 300 ml IV Total 550 ml 830 ml # Voids 4 3 # Bowel Movements 3 2 Objective Objective General: No acute distress, awake and alert HEENT: NCAT, sclera anicteric, PERRL, EOMI. Neck: Supple, no significant jugular venous distention, Lungs: Good inspiratory effort, clear to auscultation bilaterally, no Wheeze or Rales. Heart: Regular rate and rhythm, normal S1/S2, no murmurs Abdomen: soft, nontender, nondistended. Normoactive bowel sounds. / Rectal: Refused and deferred. Extremities: No Cyanosis , clubbing or edema. Neuro: A&O x 3, Able to move all extremities Skin: warm, no rashes or lesions Psych: Normal mood and affect Assessment/Plan Status: progressing Assessment/Plan Assessment/Plan Assessment/Plan 1. Abdominal pain associated with nausea and vomiting, most likely secondary to gastroenteritis. 2. Diabetes type 2. 3. Hypertension. 4. Chronic kidney disease. 5. History of MS. 6. Dehydration with prerenal azotemia. PLAN: In Medical/Surgical. Follow up laboratory and stool cultures. Clear liquid diet advance as tolerated IV hydration. Broad-spectrum antibiotic: Rocephin , Flagyl. Code status: Full Code. DVT prophylaxis with heparin subcutaneous. Dr. Dick from Gastroenterology consult. Await possible colonoscopy-see GI note. [place] planning home in AM. Avi Sun MD October 11, 2017 14:29
[2017-10-11 16:00] VITALS: BP 150/80
[2017-10-11 20:08] VITALS: BP 144/80
[2017-10-11] MEDS: Atorvastatin 80mg tab ORAL SCH (20:31)
[2017-10-12] MEDS: cefTRIAXone 1 GM in D5W 55 ML IVPB SCH (00:19)
[2017-10-12 00:47] VITALS: BP 142/75
[2017-10-12 04:00] VITALS: BP 145/77
[2017-10-12 08:00] VITALS: BP 154/84
[2017-10-12] MEDS: Breo Ellipta 100/25mcg - 14 dose INH SCH ×2 (08:26→09:16)
[2017-10-12 09:14] VITALS: BP 154/84
[2017-10-12] MEDS: Irbesartan 150mg tablet ORAL SCH (09:14)
[2017-10-12] MEDS: Montelukast 10mg tablet ORAL SCH (09:15)
[2017-10-12] MEDS: Vitamin D 1000 IU Tab ORAL SCH (09:15)
[2017-10-12] MEDS: Magnesium Oxide 400mg tab ORAL SCH (09:15)
[2017-10-12] MEDS: Flonase Nasal Inhaler 16gm NASAL SCH (09:16)
--- NOTE | 2017-10-12 09:37 | General Progress Note ---
Assessment/Plan Problem List: (1) Hypertension ICD Codes: I10 - Essential (primary) hypertension SNOMED: 32218499 (2) Nausea, vomiting, and diarrhea ICD Codes: R11.2 - Nausea with vomiting, unspecified; R19.7 - Diarrhea, unspecified SNOMED: 8169670 (3) Anemia ICD Codes: D64.9 - Anemia, unspecified SNOMED: 301067604 Assessment/Plan anemia work up lactouse free dier/low residual dispo planning for today/tomorrow fu as out patient Subjective ROS Limited/Unobtainable: Yes Allergies: Coded Allergies: SULFA (SULFONAMIDE ANTIBIOTICS) (Verified Allergy, Intermediate, 05/28/13) N/V , bleeding, dizziness Subjective diarrhea is better Objective Last 24 Hour Vital Signs Date Time Temp Pulse Resp B/P (MAP) Pulse Ox O2 Delivery O2 Flow Rate FiO2 10/12/17 09:14 154/84 10/12/17 08:29 60 16 98 Room Air 21 10/12/17 08:26 60 16 98 Room Air 21 10/12/17 08:00 98.1 60 20 154/84 98 98.1 10/12/17 04:00 98.4 61 20 145/77 98 Room Air 98.4 10/12/17 00:47 98.1 63 20 142/75 98 Room Air 98.1 10/11/17 20:08 97.7 67 18 144/80 97 Room Air 97.7 10/11/17 16:00 98.1 60 20 150/80 99 98.1 10/11/17 12:00 97.7 67 23 137/74 98 97.7 10/11/17 09:36 73 16 97 Room Air 21 Intake and Output 10/11/17 10/12/17 19:00 07:00 Intake Total 1250 ml 980 ml Balance 1250 ml 980 ml Intake Oral 400 ml IV Total 850 ml 980 ml # Voids 3 3 Laboratory Tests 10/12/17 06:35: Free Thyroxine 1.16 Height (Feet): 5 Height (Inches): 6.00 Weight (Pounds): 190 General Appearance: alert EENT: normal ENT inspection Neck: supple Cardiovascular: normal rate Respiratory/Chest: lungs clear Abdomen: normal bowel sounds, non tender, soft Extremities: non-tender Christophe Dick MD October 12, 2017 09:37
[2017-10-12] MEDS: D5 1/2NS w/KCl 20mEq 1,000 ML IV SCH (10:00)
--- NOTE | 2017-10-12 14:10 | Internal Med Progress Note ---
Subjective Date of Service: October 12, 2017 Physician Name SunAvi gan Attending Physician Moses Gomez MD Current Medications Medications (Trade) Dose Ordered Sig/Carin Route PRN Reason Start Time Stop Time Status Last Admin Dose Admin Acetaminophen (Tylenol) 650 mg Q6H PRN ORAL Mild Pain/Temp > 100.5 10/09/17 00:30 11/08/17 00:29 10/11/17 15:09 Atorvastatin Calcium (Lipitor) 80 mg DAILY@2100 ORAL 10/09/17 21:00 11/08/17 20:59 10/11/17 20:31 Ceftriaxone Sodium 1 gm/ Dextrose 55 ml @ 110 mls/hr Q24H IVPB 10/10/17 00:00 10/17/17 00:00 10/12/17 00:19 Dextrose/ Electrolytes 1,000 ml @ 75 mls/hr [id number] IV 10/09/17 02:00 11/08/17 01:59 10/11/17 20:31 Escitalopram Oxalate (Lexapro) 20 mg DAILY ORAL 10/09/17 09:00 11/08/17 08:59 10/12/17 09:16 Fluticasone Propionate (Flonase) 2 spray DAILY NASAL 10/09/17 09:00 11/08/17 08:59 10/12/17 09:16 Fluticasone/ Vilanterol (Breo Ellipta 100/25) 1 DAILY INH 10/10/17 09:00 11/09/17 08:59 10/12/17 09:16 Gabapentin (Neurontin) 600 mg DAILY ORAL 10/09/17 09:00 11/08/17 08:59 10/12/17 09:14 Gabapentin (Neurontin) 1,200 mg BEDTIME ORAL 10/09/17 21:00 11/08/17 20:59 10/11/17 20:31 Irbesartan (Avapro) 300 mg DAILY ORAL 10/09/17 09:00 11/08/17 08:59 10/12/17 09:14 Magnesium Oxide (Mag-Ox 400mg) 400 mg DAILY ORAL 10/09/17 09:00 11/08/17 08:59 10/12/17 09:15 Metronidazole 100 ml @ 100 mls/hr Q12H IVPB 10/09/17 02:00 10/16/17 01:59 10/12/17 01:25 Montelukast Sodium (Singulair) 10 mg DAILY ORAL 10/09/17 09:00 11/08/17 08:59 10/12/17 09:15 Morphine Sulfate (Morphine Sulfate) 2 mg Q4H PRN IV Severe Pain (Pain Scale 7-10) 10/09/17 00:30 10/16/17 00:29 Nebivolol (Bystolic) 30 mg DAILY ORAL 10/09/17 09:00 11/08/17 08:59 10/12/17 09:15 Ondansetron HCl (Zofran) 4 mg Q4H PRN IVP Nausea & Vomiting 10/09/17 00:30 11/08/17 00:29 10/11/17 15:09 Patient Own Medication (Patient's Own Med) 1 ea 3XW@2100 SUBQ 10/10/17 21:00 11/09/17 20:59 10/10/17 20:51 Patient Own Medication (Patient's Own Med) 1 ea Q12H BOTH EYES 10/10/17 09:00 11/09/17 08:59 10/11/17 20:47 Potassium Chloride (K-Dur) 20 meq DAILY ORAL 10/10/17 09:00 11/09/17 08:59 10/12/17 09:14 Vitamin D (Vitamin D) 1,000 intlu DAILY ORAL 10/09/17 09:00 11/08/17 08:59 10/12/17 09:15 Allergies: Coded Allergies: SULFA (SULFONAMIDE ANTIBIOTICS) (Verified Allergy, Intermediate, 05/28/13) N/V , bleeding, dizziness ROS Limited/Unobtainable: No Constitutional: Reports: no symptoms HEENT: Reports: no symptoms Cardiovascular: Reports: no symptoms Respiratory: Reports: no symptoms Gastrointestinal/Abdominal: Reports: abdominal pain, diarrhea, nausea, vomiting Genitourinary: Reports: no symptoms Neurologic/Psychiatric: Reports: no symptoms Subjective 57 YO F admitted with Abdominal pain, nausea and vomiting. Cover for Int Med- Dr Gomez Objective Last Vital Signs Date Time Temp Pulse Resp B/P (MAP) Pulse Ox O2 Delivery O2 Flow Rate FiO2 10/12/17 09:14 154/84 10/12/17 08:29 60 16 98 Room Air 21 10/12/17 08:00 98.1 98.1 Laboratory Tests Test 10/12/17 06:35 Free Thyroxine 1.16 NG/DL (0.76-1.46) Intake and Output 10/11/17 10/12/17 19:00 07:00 Intake Total 1250 ml 980 ml Balance 1250 ml 980 ml Intake Oral 400 ml IV Total 850 ml 980 ml # Voids 3 3 Objective Objective General: No acute distress, awake and alert HEENT: NCAT, sclera anicteric, PERRL, EOMI. Neck: Supple, no significant jugular venous distention, Lungs: Good inspiratory effort, clear to auscultation bilaterally, no Wheeze or Rales. Heart: Regular rate and rhythm, normal S1/S2, no murmurs Abdomen: soft, nontender, nondistended. Normoactive bowel sounds. / Rectal: Refused and deferred. Extremities: No Cyanosis , clubbing or edema. Neuro: A&O x 3, Able to move all extremities Skin: warm, no rashes or lesions Psych: Normal mood and affect Assessment/Plan Assessment/Plan Assessment/Plan Assessment/Plan 1. Abdominal pain associated with nausea and vomiting, most likely secondary to gastroenteritis. 2. Diabetes type 2. 3. Hypertension. 4. Chronic kidney disease. 5. History of MS. 6. Dehydration with prerenal azotemia. PLAN: In Medical/Surgical. Follow up laboratory and stool cultures. Clear liquid diet advance as tolerated IV hydration. Broad-spectrum antibiotic: Rocephin , Flagyl. Code status: Full Code. DVT prophylaxis with heparin subcutaneous. Dr. Dick from Gastroenterology consult. Await possible colonoscopy-see GI note. DC planning home in AM. Avi Sun MD October 12, 2017 14:10
--- NOTE | 2017-10-14 17:03 | Discharge Summary ---
Discharge Summary Hospital Course Date of Admission October 08, 2017 at 20:52 Date of Discharge October 12, 2017 at 14:30 Admitting Diagnosis VOMITING/DIARRHEA HPI Sherly Valverde is a 57 year old female who was admitted on October 08, 2017 at 20:52 for Vomiting/Diarrhea Hospital Course dc summary #[id number] Discharge Medications Continued Medications: Aspirin* (Aspirin*) 81 Mg Tab.chew 81 MG ORAL DAILY, TAB Cholecalciferol (Vitamin D3)* (Vitamin D*) 1,000 Unit Tablet 1000 UNIT ORAL DAILY Cyclosporine (Restasis) 1 Each Droperette 1 DROP BOTH EYES EVERY 12 HOURS Escitalopram Oxalate* (Lexapro*) 20 Mg Tablet 20 MG ORAL DAILY Esomeprazole Magnesium (Nexium) 40 Mg Capsule.dr 40 MG ORAL DAILY Fluticasone Propionate (Fluticasone Propionate) 1 Sprays Naspr 1 SPRAY NASAL TWICE A DAY, #16 GM per nostril Gabapentin* (Gabapentin*) 300 Mg Capsule 600 MG ORAL DAILY Gabapentin* (Neurontin*) 600 Mg Tablet 1200 MG ORAL HS, TAB (This prescription has been renewed) Hydrochlorothiazide* (Hydrochlorothiazide*) 25 Mg Tablet 25 MG ORAL DAILY, #30 TAB Ibuprofen* (Motrin*) 600 Mg Tablet 600 MG ORAL THREE TIMES A DAY, #30 TAB Interferon Beta-1A (Rebif 44 Mcg/0.5 ml Syringe) 44 Mcg/0.5 Ml Inj 44 MCG SUBQ 3XW Magnesium Oxide (Magnesium Oxide) 400 Mg Tab 400 MG ORAL DAILY Mometasone Furoate (Nasonex) 17 Gm Fifty Six.pump 2 SPRAYS NASAL DAILY Montelukast Sodium* (Singulair*) 10 Mg Tablet 10 MG ORAL DAILY Nebivolol Hcl (Bystolic*) 10 Mg Tablet 30 MG ORAL DAILY Olmesartan Medoxomil (Benicar) 40 Mg Tablet 40 MG ORAL DAILY, TAB Ondansetron Odt* (Zofran Odt*) 4 Mg Tab.rapdis 4 MG ORAL Q6H PRN for Nausea & Vomiting, #10 TAB Potassium Gluconate (Potassium) 99 Mg Tablet 1080 MG PO TID Rosuvastatin Calcium (Crestor) 10 Mg Tab 40 MG ORAL DAILY, TAB Discharge Condition Upon Discharge: stable Discharge Disposition Patient was discharged to Home (01) Discharge Instructions Discharge Instructions Special Instructions I have been assigned to complete a D/C Summary on this account. I was not involved in the patient management Odalys Bob NP October 14, 2017 17:03
--- NOTE | 2017-10-14 18:00 | Discharge Summary 2 SIG ---
DATE OF ADMISSION: 10/08/2017 DATE OF DISCHARGE: 10/12/2017 REASON FOR ADMISSION: The patient is a 57-year-old female with past medical history of hypertension, gastritis, dyslipidemia, chronic kidney disease, and history of MS, presented to the hospital complaining about abdominal pain and cramps associated with nausea, vomiting, and diarrhea. The patient stated that symptoms started about a week ago. The patient was at the doctor's office and was prescribed Augmentin. Initially, the symptoms started with a sore throat. She took Augmentin for 7 days. However, when she was taking antibiotics, she started to have a loose stool and diarrhea, however, she completed course of antibiotic and her symptoms improved. She went to eat some tacos and then immediately after this started to have uncomfortable feeling in her abdomen associated with nausea, vomiting, and abdominal cramps. Subsequently, she came to the emergency room for evaluation. After initial evaluation, the patient was admitted with abdominal pain, nausea, vomiting, and diarrhea, possibly due to gastroenteritis. Upon evaluation in the emergency department, electrolytes were stable. Troponin negative. WBC 13. CT of the abdomen and pelvis revealed no acute intra-abdominal pathology, right renal parenchymal and nonobstructive calculi, enlarged uterus probably on the basis of fibroid changes, and bilateral dependent pulmonary atelectatic changes. Hemoglobin and hematocrit were stable. Stable electrolytes and renal parameters. AST slightly elevated at 55. Troponin negative. Lipase within normal limits. [employer]: Christophe Dick M.D., GI specialist. HOSPITAL COURSE: The patient was admitted to medical/surgical floor. The patient was started on IV fluids and initially started on clear liquid diet. The patient was started on broad-spectrum antibiotics. Stool studies were closely monitored. Stool for C. difficile culture was negative. Stool culture revealed no evidence of Salmonella, Shigella, or Campylobacter infection. Urine culture revealed mixed gram-positive organism with colony count less than 10,000. Leukocytosis resolved on the next day. Antiemetic were on board as needed. Diet was slowly advanced as tolerated. Per GI specialist, recommended lactulose free low residual diet. Hemoglobin and hematocrit were closely monitored. The patient had evidence of mild anemia with IV fluids, hemoglobin 11.8 and hematocrit 36.7 and prior to discharge, 11.4 and 34.6. Hemoglobin and hematocrit were closely monitored and remained on the baseline. Renal parameters and electrolytes were closely monitored. Electrolytes, specifically potassium was replaced as needed. She remained stable. Symptomatic treatment provided. Diarrhea resolved. Pain management was addressed. DVT prophylaxis provided. Blood pressure was managed with ARB and beta-jd and was stable. Home medication resumed. The patient was stable for discharge home. Outpatient follow up with the GI specialist and primary care provider. FINAL DIAGNOSES: 1. Abdominal pain with nausea and vomiting. 2. Probable gastroenteritis. 3. Hypertension. 4. Hypokalemia, resolved. 5. Dehydration. 6. History of multiple sclerosis. 7. Anemia. DISCHARGE MEDICATIONS: See medication reconciliation list. DISCHARGE INSTRUCTIONS: The patient was discharged home. Follow up with the primary care provider in one week. Follow up with the GI provider as outpatient. Moses Gomez M.D. I have been assigned to dictate discharge summary on this account and I was not involved in the patient's management. Odalys gregoryreggie NEfe DR: MACY JOB#: [id number] CC:
== END 2017-10-12 14:30 | disposition home or self-care (01) | DRG 392 ==
LOC: EMR 20:10 → 4W 20:52 → EDBEDREQ 21:31
DX: K52.9 Noninfective gastroenteritis and colitis, unspecified (principal); N18.9 Chronic kidney disease, unspecified; E78.5 Hyperlipidemia, unspecified; I12.9 Hypertensive chronic kidney disease with stage 1 through stage 4 chronic kidney disease, or unspecified chronic kidney disease; G35 Multiple sclerosis; E86.0 Dehydration; E11.22 Type 2 diabetes mellitus with diabetic chronic kidney disease; D64.9 Anemia, unspecified; E87.6 Hypokalemia; Z88.2 Allergy status to sulfonamides
CPT/HCPCS: 36415; 71045; 74176; 80048; 80053; 81003; 82550; 82553; 83690; 83735; 83880; 84100; 84439; 84443; 84484; 85007; 85025; 87045; 87086; 87324; 93005; 94640; 99285; J2405; J8499